=== PATIENT | male | born 1970 | race Caucasian/White ===

== ENCOUNTER 2018-12-29 12:02 | Day surgery (SDC) | payer BC, MEDICAID ==
[~2018-12-29] VITALS: Ht 170.2 cm; Wt 93.2 kg
[~2018-12-29 12:02] MED LIST: NO MEDS.; TAMS-14 PO
[2018-12-29 13:51] VITALS: Ht 170.2 cm; Wt 93.2 kg
[2018-12-29 14:21] VITALS: BP 116/71; PULSE 54; RESP 16
[2018-12-29] MEDS ORDERED: PROPOFOL 40 ML ONE (14:38)
--- NOTE | 2018-12-29 14:44 | PREAC ---
Date/Time of Note Date/Time of Note DATE: 12/29/18 TIME: 14:43 Anesthesia Eval and Record Evaluation Time Pre-Procedure Interview DATE: 12/29/18 TIME: 14:43 Age 48 Sex male NPO: 8 hrs Preoperative diagnosis Abdominal pain Planned procedure Colonoscopy Past Medical History Past Medical History: Includes Renal: BPH Surgery & Anesthesia Issues No known issue Meds Anticoagulation: No Beta Zaid within 24 hr: No Reason Beta Zaid not given: Pt. not on B-Zaid Reported Medications Tamsulosin Hcl* (Flomax*) 0.4 Mg Cap.er.24h, 0.4 MG PO DAILY, CAP 12/29/18 Discontinued Reported Medications [No Meds.] No Conflict Check 03/29/15 Meds reviewed: Yes Allergies Coded Allergies: No Known Drug Allergies (Verified Allergy, Unknown, 03/29/15) Allergies Reviewed: Yes Labs/Studies Labs Reviewed: Reviewed by anesthesiologist test: N/A Studies: ECG (n/a), CXR (n/a) Pre-procedure Exam Last vitals Vital Signs Date Temp Pulse Resp B/P (MAP) Pulse Ox O2 O2 Flow FiO2 Time Delivery Rate 12/29/18 98.0 54 16 116/71 94 Room Air 14:21 (86) Airway: Adequate mouth opening, Adequate thyromental dist Mallampati: Mallampati II Teeth: Normal Lung: Normal Heart: Normal ASA Physical Status ASA physical status: 2 Emergency: None Planned Anesthetic General/MAC: MAC Planned Pain Management Parenteral pain med Pre-operative Attestations Prior to commencing anesthesia and surgery, the patient was re-evaluated, there was verification of: *The patient's identity *The results of appropriate recent lab work and preoperative vital signs *The above evaluation not changing prior to induction *Anesthetic plan, risk benefits, alternative and complications discussed with patient/family; questions answered; patient/family understands, accepts and wishes to proceed. KRYSTEN MCKENNA MD Dec 29, 2018 14:44
--- NOTE | 2018-12-29 15:22 | PAC ---
Date/Time of Note Date/Time of Note DATE: 12/29/18 TIME: 15:22 Post-Anesthesia Notes Post-Anesthesia Note Last documented vital signs Vital Signs Date Temp Pulse Resp B/P (MAP) Pulse Ox O2 O2 Flow FiO2 Time Delivery Rate 12/29/18 98.0 54 16 116/71 94 Room Air 15:21 (86) Activity: WNL Respiratory function: WNL Cardiovascular function: WNL Mental status: Baseline Pain reasonably controlled: Yes Hydration appropriate: Yes Nausea/Vomiting absent: Yes KRYSTEN MCKENNA MD Dec 29, 2018 15:22
[2018-12-29 16:13] VITALS: BP 136/83; RESP 20
== END 2018-12-29 16:47 | disposition home or self-care (01) ==
LOC: GIL 12:02
PROVIDERS: ATTEND Internal Medicine Gastroenterology
DX: K57.30 Diverticulosis of large intestine without perforation or abscess without bleeding (principal)
CPT/HCPCS: 45380; 88305; Z7610